=== PATIENT | male | born 1955 | race Two or more races ===

== ENCOUNTER 2016-09-11 23:10 | Emergency (ER) | payer OTHER ==
[2016-09-11 23:29] VITALS: BP 131/82; PULSE 72; TEMP 97.9; BMI 23.1
[2016-09-11] MEDS ORDERED: OXYCODONE/APAP 5/325MG COMBO TABLET PO ONE (23:32)
--- NOTE | 2016-09-11 23:32 | PDOC ---
History of Present Illness - History of Present Illness Initial Comments: 09/12/16 00:30 The patient is a 61 year old male, with a significant past medical history of hypercholesterolemia, who presents to the emergency department with a mild tension-like headache since noon today. The patient reports his pain is localized to the occipital region and nonradiating. He reports taking 650 mg of Tylenol around 8PM tonight. He also reports taking his blood pressure multiple times today with multiple high readings. He denies history of HTN, but states he spoke with Dr. Skyla prado who suggested he be evaluated in the ED. As per the patients family, the patient has been under stress lately. He denies chest pain, shortness of breath, dizziness, and visual changes. He denies fever, chills, nausea, vomit, diarrhea and constipation. He denies dysuria, frequency, urgency and hematuria. Allergies: NKDA Social history: denies toxic habits PCP - Dr. Crum <Simran Romero - Last Filed: 09/12/16 00:30> <Sharlene Elder - Last Filed: 09/12/16 23:54> - General Chief Complaint: Blood Pressure Problem Stated Complaint: HEADACHE Time Seen by Provider: 09/11/16 23:24 Past History <Simran Romero - Last Filed: 09/12/16 00:30> - Past Medical History GI Disorders: Yes (gerd) Hypercholesterolemia: Yes - Psycho/Social/Smoking Cessation Hx Suicidal Ideation: No Smoking History: Unknown if ever smoked Hx Alcohol Use: No Drug/Substance Use Hx: No <Sharlene Elder - Last Filed: 09/12/16 23:54> - Past Medical History Allergies/Adverse Reactions: Allergies Allergy/AdvReac Type Severity Reaction Status Date / Time No Known Allergies Allergy Verified 09/11/16 23:26 Home Medications: Ambulatory Orders [place]-3 Acid Ethyl Esters [Lovaza] 1 gm PO ASDIR 09/11/16 Review of Systems - Review of Systems Able to Perform ROS?: Yes Comments:: 09/12/16 00:30 CONSTITUTIONAL: Absent: fever, chills, diaphoresis, generalized weakness, malaise, loss of appetite HEENT: Absent: rhinorrhea, nasal congestion, throat pain, throat swelling, difficulty swallowing, mouth swelling, ear pain, eye pain, visual Changes CARDIOVASCULAR: Absent: chest pain, syncope, palpitations, irregular heart rate, lightheadedness , peripheral edema RESPIRATORY: Absent: cough, shortness of breath, dyspnea with exertion, orthopnea, wheezing, stridor, hemoptysis GASTROINTESTINAL: Absent: abdominal pain, abdominal distension, nausea, vomiting, diarrhea, constipation, melena, hematochezia GENITOURINARY: Absent: dysuria, frequency, urgency, hesitancy, hematuria, flank pain, genital pain MUSCULOSKELETAL: Absent: myalgia, arthralgia, joint swelling SKIN: Absent: rash, itching, pallor HEMATOLOGIC/IMMUNOLOGIC: Absent: easy bleeding, easy bruising, lymphadenopathy, frequent infections ENDOCRINE: Absent: unexplained weight gain, unexplained weight loss, heat intolerance, cold intolerance NEUROLOGIC: (+) headache, Absent: focal weakness or paresthesias, dizziness, unsteady gait, seizure, mental status changes, bladder or bowel incontinence PSYCHIATRIC: Absent: anxiety, depression, suicidal or homicidal ideation, hallucinations. <Simran Romero - Last Filed: 09/12/16 00:30> *Physical Exam - Vital Signs Last Vital Signs Temp Pulse Resp BP Pulse Ox 97.9 F 72 18 131/82 97 09/11/16 23:26 09/11/16 23:26 09/11/16 23:26 09/11/16 23:26 09/11/16 23:26 - Physical Exam Comments: 09/12/16 00:30 GENERAL: Well developed, well nourished. Awake and alert. No acute distress. HEENT: Normocephalic, atraumatic. PERRLA, EOMI. No conjunctival pallor. Sclera are non- icteric. Moist mucous membranes. Oropharynx is clear. NECK: Supple. Full ROM. No JVD. Carotid pulses 2+ and symmetric, without bruits. No thyromegaly. No lymphadenopathy. CARDIOVASCULAR: Regular rate and rhythm. No murmurs, rubs, or gallops. Distal pulses are 2+ and symmetric. PULMONARY: No evidence of respiratory distress. Lungs clear to auscultation bilaterally. No wheezing, rales or rhonchi. ABDOMINAL: Soft. Non-tender. Non-distended. No rebound or guarding. No organomegaly. Normoactive bowel sounds. MUSCULOSKELETAL Normal range of motion at all joints. No bony deformities or tenderness. No CVA tenderness. EXTREMITIES: No cyanosis. No clubbing. No edema. No calf tenderness. SKIN: Warm and dry. Normal capillary refill. No rashes. No jaundice. NEUROLOGICAL: Alert, awake, appropriate. Cranial nerves 2-12 intact. Normoreflexic in the upper and lower extremities. Normal speech. Toes are down-going bilaterally. Gait is normal without ataxia. PSYCHIATRIC: Cooperative. Good eye contact. Appropriate mood and affect. <Simran Romero - Last Filed: 09/12/16 00:30> - Vital Signs Last Vital Signs Temp Pulse Resp BP Pulse Ox 97.9 F 72 18 131/82 97 09/11/16 23:26 09/11/16 23:26 09/11/16 23:26 09/11/16 23:26 09/11/16 23:26 <Sharlene Elder - Last Filed: 09/12/16 23:54> ED Treatment Course - Medications Given in the ED: ED Medications Discontinued Medications Generic Name Dose Route Start Last Admin Trade Name Maximiliano PRN Reason Stop Dose Admin Alprazolam 0.25 mg 09/12/16 00:09 09/12/16 00:10 Xanax - PO 09/12/16 00:10 0.25 mg ONCE ONE Administration Oxycodone/Acetaminophen 1 combo 09/11/16 23:32 09/11/16 23:44 Percocet 5/325 - PO 09/11/16 23:33 1 combo ONCE ONE Administration <Simran Romero - Last Filed: 09/12/16 00:30> Medical Decision Making - Medical Decision Making 09/12/16 23:48 61 yo male with h/o HTN came because at noon he developed a occipital headache and in the evening he noted that his blood pressure was elevated he spoke w Dr Crum and she was concerned and told him to come to ER. No focal neuro deficits -upon arrival his blood pressure was sl elevated but not significantly. his headache was mild -he denies any visual changes,nausea,vomiting,fever, chills. ataxia imp- tension headahce <Sharlene Elder - Last Filed: 09/12/16 23:54> *DC/Admit/Observation/Transfer - Attestations Scribe Attestion: 09/12/16 00:31 Documentation prepared by Simran Romero, acting as associate medical director for Sharlene Elder MD <Simran Romero - Last Filed: 09/12/16 00:30> <Sharlene Elder - Last Filed: 09/12/16 23:54> Diagnosis at time of Disposition: Headache Qualifiers: Headache type: tension-type Headache chronicity pattern: unspecified pattern Intractability: not intractable Qualified Code(s): G44.209 - Tension-type headache, unspecified, not intractable - Discharge Dispostion Disposition: HOME Condition at time of disposition: Stable - Referrals Referrals: Cathy Crum MD [Primary Care Provider] - - Patient Instructions Printed Discharge Instructions: DI for Hormonal and Tension Headaches Additional Instructions: please take tylenol or motrin for your headache If you develop any dizziness,nausea,visual changes associated with your headache ,please return to the emergency department
[2016-09-11] MEDS ORDERED: OXYCODONE/APAP 5/325MG COMBO TABLET ONE (23:46)
[2016-09-12] MEDS ORDERED: ALPRAZolam 0.25 MG TABLET PO ONE (00:09)
[2016-09-12] MEDS ORDERED: ALPRAZolam 0.25 MG TABLET ONE (00:11)
== END 2016-09-11 23:58 | disposition home or self-care (01) ==
LOC: JER 23:10
DX: G44.209 Tension-type headache, unspecified, not intractable (principal)
CPT/HCPCS: 99282-25